=== PATIENT | male | born 2000 | race Caucasian/White ===

== ENCOUNTER 2019-01-20 14:33 | Day surgery (SDC) | payer SELFPAY ==
[2019-01-20] MEDS ORDERED: Midazolam HCl 2 mg/2 ml Vial ONE ×2 (16:13→16:14)
[2019-01-20] MEDS ORDERED: Fentanyl 100 MCG/2 ML VIAL ONE (16:14)
--- NOTE | 2019-01-20 23:36 | HP ---
DATE OF CONSULTATION: 01/20/2019 REASON FOR CONSULTATION: Esophageal food bolus impaction. CONSULTING PHYSICIAN: Dr. Reed. 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 He states that around once per month for the last 5-10 years, he has been having intermittent episodes of dysphagia characterized by the sensation of food would get stuck at around the level of the xiphoid process. This would occur primarily with type foods including chicken, beef and pork. However, in the past he has been able to bring up the food either with aggressive coughing or by drinking fluids to force the food down into the stomach. However, yesterday when he was eating dinner, he consumed a larger portion of sausage and states that he was "eating too fast" resulting in the sensation of the food getting stuck again at the xiphoid process. This was associated with intermittent chest pain characterized as a sharp type sensation, nonradiating and reaching a severity of 4-5/10. He attempted multiple times in order to cough out the medication as well as drinking fluids that were unsuccessful. With inability to pass the food bolus in the stomach, it prompted him to seek healthcare assistance at the [facility] where he was diagnosed with a food bolus impaction and transferred to [facility] for emergent evaluation. Currently, he denies any nausea, vomiting, fevers, chills, hematemesis, melena, hematochezia, or odynophagia. REVIEW OF SYSTEMS: A 10-category review of systems was obtained with all responses negative except for the pertinent positives as listed in HPI. PAST MEDICAL HISTORY: 1. Anxiety. 2. Esophageal atresia. PAST SURGICAL HISTORY: Correction of esophageal atresia when he was 6-8 weeks old. FAMILY HISTORY: Denies any GI malignancies. SOCIAL HISTORY: Denies any tobacco, alcohol, or illicit drug use. OUTPATIENT MEDICATIONS: Clonazepam. ALLERGIES: NO KNOWN DRUG ALLERGIES. PHYSICAL EXAMINATION: No vital signs are available in the chart for review at this time. GENERAL: The patient was lying in bed, in no acute distress. Alert and oriented x4. HEENT: Normocephalic, atraumatic. NECK: Supple. No JVD or scleral icterus noted. CARDIOVASCULAR: Regular rate and rhythm with no discernible murmurs, gallops, or rubs. RESPIRATORY: Clear to auscultation bilaterally with no discernible wheezes or rales. ABDOMEN: Normoactive bowel sounds. Soft, nondistended. Tenderness to palpation in the midepigastric region. EXTREMITIES: No cyanosis, clubbing, or edema. LABORATORY DATA: CBC with an elevated white blood cell count of 19.8, hemoglobin 13.4, hematocrit 42.9, platelets 313. Chemistry with a sodium of 142, potassium 4, chloride 104, CO2 of 26, BUN 11, creatinine 0.77, glucose 87, AST 14, ALT 8, alkaline phosphatase 130, total bilirubin 1.8, albumin 4.7, amylase 33, lipase 12. IMAGING DATA: No current GI imaging is available for review. ASSESSMENT AND PLAN: The patient is a 18-year-old male with past medical history of anxiety and esophageal atresia status post surgical correction, presenting with an an esophageal food bolus impaction. Esophageal food bolus impaction. The patient is presenting with acute onset of dysphagia characterized as the sensation of food got caught at the level of the xiphoid process that has been present since yesterday around 4:00 p.m. in the afternoon after ingestion of a hard piece of sausage. This has occurred multiple times in the past, occurring on average around once per month for around the last 5-10 years. Given his history of esophageal atresia and what sounds like dilation of the distal esophagus and surgical reconnection at that point, an anastomotic stricture or recurrence of a stricture at that site is more likely. RECOMMENDATIONS: 1. We would continue the patient on n.p.o. status in preparation for EGD later today. 2. We would proceed with EGD emergently for evaluation of the distal esophagus and removal of the food bolus impaction. 3. We would place the patient on a PPI daily for possible acid reflux contributing to the current situation and continuance as an outpatient. 4. Further recommendations to follow upper endoscopy. Job ID: [id number]
--- NOTE | 2019-01-20 23:48 | OP ---
DATE OF PROCEDURE: 01/20/2019 PROCEDURE PERFORMED: Esophagogastroduodenoscopy with food bolus removal/foreign body removal. INDICATION FOR PROCEDURE: Esophageal food bolus impaction. DESCRIPTION OF PROCEDURE: After the risks and benefits of the procedure were explained to the patient, including risks of bleeding, infection, perforation, reactions to anesthesia, aspiration, and/or pain, informed consent was obtained. The patient was then taken to the endoscopy suite, where general anesthesia was administered with endotracheal tube intubation. Once the patient was intubated and sedated, he was then maneuvered into the left lateral decubitus position in preparation for the upper endoscopy. The therapeutic gastroscope was then introduced into the mouth with intubation of the esophagus, stomach, and the proximal small intestines with the findings listed below. The patient tolerated the procedure well with no immediate perioperative complications. Upon conclusion of the procedure, all equipments were removed from the patient and he was transferred to PACU in satisfactory condition. FINDINGS: Esophagus: Normal-appearing mucosa was seen within the proximal esophagus except for a 1.5 cm inlet patch noted in the proximal esophagus that appear biologically inactive without surrounding erythema or stricture formation. However, a large food bolus was encountered at approximately 30 cm past the incisors that was completely obstructive and unable to be traversed with the gastroscope. Attempts in gentle pressure to advance the bolus into the stomach were initially unsuccessful. Using a Jeong Net, the food bolus was then fragmented with 2 large pieces removed through the mouth. Once these larger pieces were removed, the gastroscope was then readvanced into the mid esophagus/distal esophagus with the remainder of the food bolus (sausage), then slowly advanced into the stomach with gentle pressure. Upon clearing the esophagus, a benign-appearing esophageal stricture was noted at 32 cm past the incisors with increased mucosal erythema and friability in the esophagus distal to the stricture. Within the distal esophagus, there were linear areas of erosion and mild oozing of blood, but no evidence of overt perforation. Otherwise, there was no evidence of mass lesions within the esophagus to further prevent passage of food. Stomach: A moderate amount of retained solid and liquid food was seen in the proximal stomach in the level of the gastric fundus impeding visualization of the gastric mucosa underneath. However, adequate views were obtained of the remainder of the stomach (approximately 85%) with normal-appearing mucosa seen in the gastric cardia, fundus, body, greater curvature, antrum, and incisura. There was no evidence of erosions, ulcerations, mass, lesions, or active/recent bleeding seen during this portion of the exam. Duodenum: Normal-appearing mucosa was seen in both the duodenal bulb and second portion of the duodenum. There was no evidence of erosions, ulcerations, mass lesions, or active/recent bleeding. IMPRESSION: 1. A large retained food bolus seen at 30 cm past the incisors, status post removal with Jeong Net and gentle pressure to advance the bolus into the stomach; successful removal of the foreign body. 2. A benign-appearing esophageal stricture seen at 32 cm consistent with a surgical anastomosis site. 3. Increased erosive esophagitis and friability in the distal esophagus (distal to the esophageal stricture). 4. A moderate amount of retained solid and liquid food within the stomach impeding visualization of the gastric mucosa somewhat. RECOMMENDATIONS: 1. We would place the patient on a clear-liquid diet for the next 24 hours, then advance as tolerated to a soft mechanical diet until seen in the outpatient GI clinic. 2. Would place the patient on omeprazole 40 mg daily as part of treatment for esophagitis related to the food bolus impaction. 3. Would continue other current medications. 4. Would recommend a repeat upper endoscopy in 4 to 6 weeks for re-evaluation of the stricture and possible dilation at that time. 5. The patient can be discharged to home once PACU criteria have been met with followup in the outpatient GI Clinic. Job ID: [id number]
== END 2019-01-20 18:00 | disposition home or self-care (01) ==
LOC: SDC 14:33
PROVIDERS: ATTEND Internal Medicine
PROC: 0DC58ZZ Extirpation of Matter from Esophagus, Via Natural or Artificial Opening Endoscopic (ICD-10-PCS; principal; 2019-01-20)
DX: T18.128A Food in esophagus causing other injury, initial encounter (principal); K22.2 Esophageal obstruction; K20.8 Other esophagitis; F41.9 Anxiety disorder, unspecified; Z79.899 Other long term (current) drug therapy
CPT/HCPCS: J2250; J3010

== ENCOUNTER 2020-04-28 20:48 | Day surgery (SDC) | payer BC, SELFPAY ==
[~2020-04-28 20:48] MED LIST: Dexamethasone 20 MG/5 ML VIAL ONE; Ondansetron PF 4 MG/2 ML Vial ONE; PROPOFOL 200 MG/20 ML VIAL ONE; Succinylcholine 200 MG/10 ml SYRINGE FS ONE
[2020-04-28] MEDS ORDERED: Acetaminophen 325 MG/10.15 ML UDCUP ONE (21:38)
--- NOTE | 2020-04-28 22:14 | RAD ---
SOFT TISSUE NECK RADIOGRAPHS 2 VIEWS: Date: 04/28/2020 PROVIDED CLINICAL HISTORY: Difficulty swallowing. FINDINGS: There is no evidence for radiopaque foreign body. The epiglottis and aryepiglottic folds appear kendy l. No prevertebral soft tissue swelling apparent. The visualized lung pedraza appear clear. IMPRESSION: Normal. POS: CJ
[2020-04-28] MEDS ORDERED: Midazolam HCl 2 mg/2 ml Vial ONE (23:39)
--- NOTE | 2020-04-29 00:10 | CON ---
DATE OF CONSULTATION: 04/28/2020 REASON FOR CONSULTATION: Esophageal food bolus impaction. HISTORY OF PRESENT ILLNESS: Alexander Manley Jr is a 19-year-old man who is otherwise healthy, but was born with esophageal atresia and had surgical correction of this as an infant. He has some chronic dysphagia every month or so. He will feel as if food transiently hangs up in the chest, and this can last for several minutes or even an hour at a time, but usually resolves on its own or he will rarely have to regurgitate food back up. Between episodes, he really does not have any symptoms. He was here in January 2019, and seen by my partner, Dr. Grady, with an esophageal food bolus impaction. It was a piece of sausage. The stricture was noted to be at 32 cm. That obstruction was removed, and Dr. Grady had recommended daily PPI therapy as well as repeat EGD, but it does not appear the patient followed up for that. The patient does not take any medications on a chronic basis. This day, today, he was having some turkey about 4 p.m., and felt as if it got lodged in the mid chest. The sensation has been persistent over the past 7 hours since then. He has been spitting up into a bag occasionally. He has been unable to tolerate any liquid intake. He has no other symptoms. REVIEW OF SYSTEMS: A full review of systems including constitutional, head, eyes, ears, nose, throat, GI, , cardiovascular, respiratory, musculoskeletal, neurologic systems is negative except as noted in the HPI. PAST MEDICAL HISTORY: 1. Anxiety. 2. Esophageal atresia, status post correction as an . 3. Esophageal food bolus impaction, January 2019. FAMILY HISTORY: Negative for GI malignancy. SOCIAL HISTORY: No tobacco, alcohol, or drug use. ALLERGIES: NO KNOWN DRUG ALLERGIES. MEDICATIONS: None. PHYSICAL EXAMINATION: VITAL SIGNS: Blood pressure 113/64, pulse 80. GENERAL: A 19-year-old man lying in bed comfortably, in no distress. SKIN: No jaundice. No rashes visible or palpable. EYES: No scleral icterus. Extraocular movements intact. ENT: Mucous membranes moist. No oral lesions. LYMPH: No submandibular or supraclavicular lymphadenopathy. NECK: Thyroid nontender to palpation. HEART: Regular rate and rhythm. LUNGS: Clear to auscultation bilaterally. ABDOMEN: Bowel sounds present. Soft, nontender to palpation. EXTREMITIES: No peripheral edema. VESSELS: Radial pulses 2+ bilaterally. NEURO: Cranial nerves 2 through 12 intact bilaterally. No focal deficits. LABORATORY STUDIES: None. IMAGING STUDIES: Soft tissue neck x-ray this evening is normal. ASSESSMENT AND PLAN: 1. Esophageal food bolus impaction. 2. History of esophageal atresia, status post surgery as an . 3. Chronic intermittent dysphagia. The patient's presentation is consistent with esophageal food bolus impaction. We are going to perform EGD urgently tonight to relieve the obstruction and for further assessment. Anticipate the patient will be able to be discharged home after the procedure. I discussed this in detail with the patient, and he desires to proceed. Job ID: [id number]
--- NOTE | 2020-04-29 00:39 | OP ---
DATE OF PROCEDURE: 04/29/2020 PROCEDURES: 1. EGD with foreign body removal. INDICATION: 1. Esophageal food bolus impaction. 2. History of esophageal atresia, status post surgical correction as an infant. 3. Chronic intermittent dysphagia. MEDICATIONS: See Anesthesia record. FINDINGS: After discussion of the risks, benefits, and alternatives of the procedure, informed consent was obtained and witnessed. Pre-endoscopic cardiopulmonary examination was satisfactory. Time-out was performed before sedation was achieved. Sedation was achieved with Anesthesia assistance in the endoscopy unit. The patient was intubated, and the procedure performed under general anesthesia. He was placed in the left lateral decubitus position. A Pentax adult upper endoscope was placed into the oropharynx and passed through the cricopharyngeus under direct visualization. The proximal and mid esophageal mucosa appeared normal at 30 cm from the incisors. There was a large meat impaction with what appears to be a big chunk of turkey. Using a Jeong Net, I was able to completely remove the entire meat bolus in one piece without difficulty. The endoscope was passed back down into the esophagus for further examination. There is a benign-appearing stricture which likely represents an old surgical anastomosis at 32 cm from the incisors. This was the level of the meat impaction. There is some mild maceration at this area. The endoscope was able to pass easily beyond it. The distal 5 cm of esophagus beyond this area has the appearance of reflux esophagitis with several linear erosions. The endoscope was advanced into the stomach. Forward and retroflexed views of the entire gastric mucosa were obtained. The gastric mucosa appears normal. The endoscope was passed through the pylorus and into the first and second portions of the duodenum, which also appeared normal. The upper endoscope was then completely withdrawn, and the patient allowed to recover. The patient tolerated the procedure well. There were no immediate postprocedure complications. IMPRESSION: 1. Large meat bolus from 30 to 32 cm, completely removed with Jeong Net. 2. Benign esophageal stricture at 32 cm from the incisors, appears to represent surgical anastomosis. 3. Distal esophagitis, beyond the area of stricture. 4. Otherwise normal EGD. RECOMMENDATIONS: 1. Liquid diet tomorrow, then advance diet carefully as tolerated. 2. Chew food thoroughly. 3. Start on omeprazole 40 mg p.o. daily. 4. Plan to repeat EGD on an outpatient basis for esophageal dilation, in 4 to 6 weeks, with Dr. Grady. Job ID: [id number]
== END 2020-04-29 01:25 | disposition home or self-care (01) ==
LOC: ERS 20:48 → SDC/OP 23:40
PROVIDERS: ATTEND Internal Medicine
PROC: 0DC58ZZ Extirpation of Matter from Esophagus, Via Natural or Artificial Opening Endoscopic (ICD-10-PCS; principal; 2020-04-29)
DX: T18.128A Food in esophagus causing other injury, initial encounter (principal); K22.2 Esophageal obstruction; K22.10 Ulcer of esophagus without bleeding; F41.9 Anxiety disorder, unspecified; Z98.890 Other specified postprocedural states; X58.XXXA Exposure to other specified factors, initial encounter
CPT/HCPCS: 70360; J1100; J1610; J2250; J2405; J2704

== ENCOUNTER 2021-05-17 20:27 | Day surgery (SDC) | payer BC ==
[2021-05-17] MEDS ORDERED: Ondansetron ODT 4 MG TAB ONE (22:58)
[2021-05-17] MEDS ORDERED: Midazolam HCl 2 mg/2 ml Vial ONE (23:43)
[2021-05-17] MEDS ORDERED: Lidocaine 1% PF 5 ML VIAL ONE (23:54)
[2021-05-17] MEDS ORDERED: Succinylcholine 200 MG/10 ml SYRINGE FS ONE (23:54)
[2021-05-17] MEDS ORDERED: diphenhydrAMINE 50 MG/ML VIAL ONE (23:54)
[2021-05-17] MEDS ORDERED: PROPOFOL 200 MG/20 ML VIAL ONE (23:54)
[2021-05-18 00:12] LABS: SARS-CoV-2 NAA Rapid Test Not Detected (NotDetected)
== END 2021-05-18 01:15 | disposition home or self-care (01) ==
LOC: ERS 20:27 → SDC/OP 23:55
PROVIDERS: ATTEND Internal Medicine
PROC: 0DC58ZZ Extirpation of Matter from Esophagus, Via Natural or Artificial Opening Endoscopic (ICD-10-PCS; principal; 2021-05-18)
DX: T18.128A Food in esophagus causing other injury, initial encounter (principal); K21.00 Gastro-esophageal reflux disease with esophagitis, without bleeding; K22.10 Ulcer of esophagus without bleeding; Q39.6 Congenital diverticulum of esophagus; Z87.738 Personal history of other specified (corrected) congenital malformations of digestive system; Z20.822 Contact with and (suspected) exposure to COVID-19
CPT/HCPCS: 36416; 96374; J1200; J1610; J2250; J2704; Q0162; U0002